=== PATIENT | female | born 1975 | race Caucasian/White ===

== ENCOUNTER 2020-11-23 09:29 | Emergency (ER) | payer OTHER, SELFPAY ==
--- NOTE | 2020-11-23 09:36 | ED.DIZZY ---
HPI - Dizziness General Chief Complaint: Dizziness Stated Complaint: dizzy,nausea/de [place] cruz Time Seen by Provider: 11/23/20 09:45 Source: patient and RN notes reviewed Mode of arrival: ambulatory Limitations: no limitations History of Present Illness HPI Narrative: 45-year-old female presents with concern for dizziness and subsequent nausea. Reports symptoms started yesterday. Reports for approximately 1 week her right ear has felt clogged. She denies any nasal congestion, rhinorrhea, ear pain, sore throat, cough, shortness of breath, body aches, chills, sweats. She denies any severe headache, thunderclap headache. Denies any current headache. She denies vomiting. Reports dizziness occurs when she turns her head, worse when she turns her head to the right, dizziness occurs when she moves from a sitting to standing position, reports dizziness has a room spinning affect. She denies any syncope or near syncope, fast heartbeat or irregular heartbeat. MD elicited complaint: dizziness Related Data Allergies Allergy/AdvReac Type Severity Reaction Status Date / Time No Known Allergies Allergy Unknown Verified 11/23/20 09:47 NKFA Allergy Unknown Other Uncoded 11/23/20 09:47 Review of Systems Review of Systems: Narrative: CONSTITUTIONAL: Denies malaise, chills, sweats, or fever. EYES: Denies visual changes, redness, or discharge. ENT: Denies rhinorrhea, congestion, sinus pain, otalgia or sore throat. Reports right ear fullness CARDIOVASCULAR: Denies chest pain, palpitations, or edema. RESPIRATORY: Denies cough or dyspnea. GASTROINTESTINAL: Denies abdominal pain, vomiting, diarrhea. Reports nausea MUSCULOSKELETAL: Denies myalgia. NEUROLOGIC: Denies numbness, weakness, or headache. Reports dizziness, room spinning with head movement PSYCHIATRIC: Denies anxiety or depression. All systems reviewed & are unremarkable except as noted in HPI and below PMFSH Comments At time of signature, agree with nursing past medical, surgical, social and family history. There is no relevant family history pertinent to the presenting complaint Exam Narrative: Exam Narrative: GENERAL: Well-appearing, well-nourished, and in no acute distress. HEAD: Normocephalic, atraumatic. EYES: PERRLA, conjunctivae clear, and EOMI. No nystagmus. ENT: Nares clear, turbinates pink, no rhinorrhea or epistaxis. Mucous membranes moist. TM pearly nicole with dull light reflex bilaterally; no tragal tenderness. Oropharynx without erythema or lesions. Tonsils not enlarged and without exudate. NECK: Supple. No lymphadenopathy. No jugular venous distension, carotids were easily palpable bilaterally. CHEST: No respiratory distress. Clear to auscultation. No bony deformities, no asymmetry. Speaks in full sentences. HEART: Regular rate and rhythm. No murmur heard. Normal peripheral pulses. SKIN: Warm, dry, no rash. NEURO: Alert and oriented x3. No focal deficits. Cranial nerves II through XII grossly intact. Floyd-Hallpike test positive on the right PSYCH: Normal mood and affect Course Course Emergency Course: Patient is aware of diagnosis, understands and agrees to treatment plan. Anticipatory guidance given. Patient agrees to follow-up as directed and is aware of reasons to seek care at the emergency department. Portions of this record may have been created with voice recognition software Vital Signs Vital signs: Vital Signs Temperature 98.3 F 11/23/20 09:41 Pulse Rate 82 11/23/20 09:41 Respiratory Rate 16 11/23/20 09:41 Blood Pressure 122/80 11/23/20 09:41 Pulse Oximetry 100 11/23/20 09:41 Temperature 98.3 F 11/23/20 09:41 Pulse Rate 82 11/23/20 09:41 Respiratory Rate 16 11/23/20 09:41 Blood Pressure 122/80 11/23/20 09:41 Pulse Oximetry 100 11/23/20 09:41 Reviewed. MDM - Dizziness MDM Narrative Medical decision making narrative: Patients vertigo is felt to be likely peripheral in origin. there is no diplopia, dysarthria, or dyshphagia. Patients
[2020-11-23 09:41] VITALS: BP 122/80; PULSE 82; RESP 16; TEMP 36.8; O2SAT 100
== END 2020-11-23 10:06 | disposition home or self-care (01) ==
PROVIDERS: Emergency Provider Nurse Practitioner; PCP Family Medicine
DX: R42 Dizziness and giddiness (principal); R11.0 Nausea
CPT/HCPCS: 99213; G0463